=== PATIENT | male | born 1960 | race Hispanic/Latino ===

== ENCOUNTER → 2020-09-18 | Outpatient (CLI) | payer OTHER ==
[~2020-09-18] MED LIST: CIPR500S5 PO; GLIP5TAB PO; METF-444 PO; METR-172 PO; OMEP20CA12 PO; TRAN1TBM4 PO
== END | disposition home or self-care (01) ==
LOC: SHCH 08:03
PROVIDERS: ATTEND Internal Medicine Cardiovascular Disease
DX: I08.8 Other rheumatic multiple valve diseases (principal); I10 Essential (primary) hypertension
CPT/HCPCS: 93306; 93356

== ENCOUNTER → 2020-10-23 | Outpatient (CLI) | payer OTHER | END | disposition home or self-care (01) | LOC: SHCH 07:29 | PROVIDERS: ATTEND Internal Medicine Cardiovascular Disease | DX: I11.0 Hypertensive heart disease with heart failure (principal); I50.42 Chronic combined systolic (congestive) and diastolic (congestive) heart failure; G47.33 Obstructive sleep apnea (adult) (pediatric) | CPT/HCPCS: 78481; A9512 ==

== ENCOUNTER → 2025-08-01 | Outpatient (CLI) | payer OTHER ==
[~2025-08-01] MED LIST changes: +IOHEXOL-350 75 ML VIAL IV ONE
--- NOTE | 2025-08-02 09:51 | HMCIMG ---
EXAMINATION: CT ANGIOGRAM OF ABDOMEN AND PELVIS AND RUNOFFS OF THE BILATERAL LOWER EXTREMITIES. CLINICAL HISTORY: Peripheral vascular disease, unspecified. COMPARISON: None provided. TECHNIQUE: MDCT angiogram of the abdominal aortic vessels was performed after administration of intravenous contrast. FINDINGS: Abdominal aorta is normal in size and caliber. There are atheromatous wall calcification of the aorta, its branches, iliac arteries and both lower limb arteries. There is no aneurysm or dissection. There is no stenosis or occlusion. The celiac and superior mesenteric arteries, are normal in caliber. There is no stenosis or occlusion. The angle between superior mesenteric artery and aorta is normal. Bilateral renal arteries are normal in caliber. There is no stenosis or occlusion. The inferior mesenteric artery is normal in caliber. Bifurcation morphology is normal. There is no stenosis or occlusion. The bilateral common iliac arteries are normal in caliber. No stenosis or occlusion. The bilateral external iliac arteries are normal in caliber. Their branches are normal, and the bilateral internal iliac arteries are normal; there is no stenosis or occlusion. The bilateral superficial femoral arteries are patent with mild stenosis. The bilateral profunda femoris and popliteal arteries are patent with mild stenosis. The anterior tibial, posterior tibial and posterior tibial arteries are patent to the level of the mid calf bilaterally but are not visualized distally. There are dense atherosclerotic calcifications in the bilateral posterior tibial arteries with moderate stenosis. Within the abdomen and pelvis, liver is normal in caliber with uniform decreased density; gallbladder, pancreas, spleen, adrenal glands, and kidneys are within normal limits; small umbilical hernia; bowel loops are normal in caliber without evidence of obstruction, ileus, or bowel wall thickening, and the appendix is normal; and urinary bladder, prostate, and seminal vesicles appear normal in caliber. IMPRESSION: No abdominal aortic aneurysm or dissection. Atheromatous wall calcification of the aorta, its branches, iliac arteries and both lower limb arteries. The anterior tibial, posterior tibial and posterior tibial arteries are patent to the level of the mid calf bilaterally but are not visualized distally. This may be due to bolus tapering or may be due to occlusion. Further evaluation with ultrasound is recommended. Dense atherosclerotic calcifications in the bilateral posterior tibial arteries with moderate stenosis. /Familia
== END | disposition home or self-care (01) ==
LOC: RAH 08:29
PROVIDERS: ATTEND Internal Medicine Cardiovascular Disease
DX: I73.9 Peripheral vascular disease, unspecified (principal); I70.0 Atherosclerosis of aorta
CPT/HCPCS: 75635; Q9967 ×2